=== PATIENT | male | born 1965 | race Caucasian/White ===

== ENCOUNTER → 2017-03-27 | Outpatient (CLI) | payer BC | LOC: FIMAGING 11:01 | PROVIDERS: ATTEND Physician Assistant | DX: J40 Bronchitis, not specified as acute or chronic (principal) ==

== ENCOUNTER 2017-03-29 10:51 | Emergency (ER) | payer BC ==
[2017-03-29 10:57] VITALS: RESP 16
--- NOTE | 2017-03-29 12:27 | EDPHY ---
H & P Time Seen by Provider: 03/29/17 12:10 HPI/ROS: HPI: A 51-year-old male presents to emergency department with worsening cough, shortness of breath, and bilateral eye discharge. Was evaluated Thursday and chest x-ray was performed. No evidence of pneumonia. Reports worsening cough with shortness of breath as well as onset of bilateral eye discharge. Denies fever, chills, eye pain, photophobia, headache, periorbital infections, chest pain, back pain, nausea, vomiting, diarrhea, rash. No history of pneumonia. Has a history of reactive airway disease. 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 ROS:10 point review of systems is negative other than as stated in HPI Smoking Status: Never smoked Constitutional: Initial Vital Signs Temperature (C) 36.4 C 03/29/17 10:53 Heart Rate 101 H 03/29/17 10:53 Respiratory Rate 16 03/29/17 10:53 Blood Pressure 115/70 03/29/17 10:53 O2 Sat (%) 95 03/29/17 10:53 O2 Delivery Mode Room Air Allergies/Adverse Reactions: Penicillins Allergy (Verified 03/12/14 18:34) Home Medications: Medication Instructions Recorded Meclizine HCl [ANTIVERT] 25 mg PO TID PRN #15 tab 03/12/14 Zantac 03/12/14 Azithromycin [Zithromax 250 mg 250 mg PO DAILY #6 tab 03/29/17 tab(RX)] Fluticasone/Salmeter 250/50Mcg 1 puffs IH BID #1 disk 03/29/17 [Advair 250/50 (*)] Gentamicin 0.3% [Gentak 0.3% Opht 2 drops EACHEYE QID #1 opht.btl 03/29/17 Drops] Medical Decision Making ED Course/Re-evaluation: This patient presents for evaluation for the 2nd time in 3 days. Chest x-ray was negative for evidence of pneumonia 2 days ago. Symptoms have worsened including shortness of breath. I will prescribe a Z-Kurt to cover for atypicals. He has an albuterol inhaler already at home. I have also prescribed Advair as he says this is prescribed from his farmer [employer] crops when he has the symptoms and it is very effective. He has been counseled regarding need for follow-up and getting established with primary care. He has been counseled regarding need for prompt return to ED for worsening symptoms. Differential Diagnosis: Differential diagnosis includes but is not limited to bronchitis, reactive airway disease, early pneumonia, other viral URI Departure - Departure Clinical Impression: Conjunctivitis, Bronchitis Condition: Good Instructions: Acute Bronchitis (ED), Conjunctivitis (ED) Additional Instructions: Plan: Zithromax antibiotic as prescribed Use your albuterol inhaler as prescribed Advair inhaler as prescribed Gentamicin eye drops as prescribed Follow up with primary care next week for recheck without fail For worsening shortness of breath return to emergency department for recheck Referrals: NONE *PRIMARY CARE P,. [Primary Care Provider] - As per Instructions Naida Manuel MD [place] [place] - As per Instructions Leoncio Betts MD [Medical Doctor] - As per Instructions Prescriptions: Azithromycin [Zithromax 250 mg tab(RX)] 250 mg PO DAILY #6 tab Fluticasone/Salmeter 250/50Mcg [Advair 250/50 (*)] 1 puffs IH BID #1 disk Gentamicin 0.3% [Gentak 0.3% Opht Drops] 2 drops EACHEYE QID #1 opht.btl
[2017-03-29 12:40] VITALS: BP 112/74; PULSE 86; TEMP 98.1; O2SAT 96
== END 2017-03-29 12:40 | disposition home or self-care (01) ==
DX: J20.9 Acute bronchitis, unspecified (principal); H10.9 Unspecified conjunctivitis